=== PATIENT | female | born 1970 | race Caucasian/White ===

== ENCOUNTER 2024-07-01 15:40 | Emergency (ER) | payer OTHER ==
[~2024-07-01] VITALS: Ht 154.9 cm; Wt 66.2 kg
[2024-07-01 15:50] VITALS: BP 161/81; PULSE 76; RESP 16; TEMP 98.3; O2SAT 100
[2024-07-01] MEDS: KETOROLAC 30 MG/ML VIAL IM ONE (16:28)
[2024-07-01 18:00] VITALS: BP 161/81; PULSE 76; RESP 16; TEMP 98.3; O2SAT 100
== END 2024-07-01 18:00 | disposition home or self-care (01) ==
LOC: MED 15:40
DX: M25.562 Pain in left knee (principal); I10 Essential (primary) hypertension
CPT/HCPCS: 73562; 81025; 96372; 99283; J1885; Q0092